=== PATIENT | male | born 1975 | race Hispanic/Latino ===

== ENCOUNTER → 2025-09-30 | Outpatient (CLI) | payer BC ==
[~2025-09-30] MED LIST: GADOTERATE MEGLUMINE 10 MMOL/20 ML VIAL IV ONE
--- NOTE | 2025-09-30 23:16 | HMCIMG ---
EXAM: MR Abdomen with and without Intravenous Contrast. CLINICAL HISTORY: Q44.6 Cystic disease of liver TECHNIQUE: Multisequence, multiplanar magnetic resonance images of the abdomen with and without intravenous contrast. Series acquired: 3 - COR SSFSE ARC - TR: 738.5 - TE: 92.5 - ET: 1.0 - Thk: 5.0 5 - AX SSFSE BH ARC - TR: 676.8 - TE: 87.6 - ET: 1.0 - Thk: 5.0 6 - AX 3D DUALECHO BH - TR: 6.5 - TE: 4.2 - ET: 1.0 - Thk: 4.4 7 - AX T2 FRFSE FATSAT LAZARO ARC - TR: 29157.0 - TE: 106.5 - ET: 18.0 - Thk: 4.0 9 - AX DWI B=500 FB - TR: 3400.0 - TE: 59.0 - ET: 1.0 - Thk: 6.0 11 - G+ COR LAVA ARC - TR: 4.3 - TE: 2.0 - ET: 1.0 - Thk: 4.4 1000 - AX LAVA DYN 5 PHASE - TR: 4.5 - TE: 1.9 - ET: 1.0 - Thk: 4.4 1001 - PH1/AX LAVA DYN 5 PHASE - TR: 4.5 - TE: 1.9 - ET: 1.0 - Thk: 4.4 1002 - PH2/AX LAVA DYN 5 PHASE - TR: 4.5 - TE: 1.9 - ET: 1.0 - Thk: 4.4 1003 - PH3/AX LAVA DYN 5 PHASE - TR: 4.5 - TE: 1.9 - ET: 1.0 - Thk: 4.4 1004 - PH4/AX LAVA DYN 5 PHASE - TR: 4.5 - TE: 1.9 - ET: 1.0 - Thk: 4.4 1005 - PH5/AX LAVA DYN 5 PHASE - TR: 4.5 - TE: 1.9 - ET: 1.0 - Thk: 4.4 1006 - FT: PH1/AX LAVA DYN 5 PHASE - TR: 4.5 - TE: 1.9 - ET: 1.0 - Thk: 20.0 CONTRAST: 20 cc of Clariscan administered intravenously. COMPARISON: None provided. FINDINGS: LOWER THORAX: No pleural effusion. LIVER: Liver is enlarged, measuring approximately 18 cm in craniocaudal dimension, with diffuse loss of signal on opposed-phase imaging compatible with hepatic steatosis. Multiple lobulated cystic lesions are present in both lobes of the liver, demonstrating low signal on T1-weighted images, high signal on T2-weighted images, no restricted diffusion, and no internal septal or mural enhancement on multiphase post-contrast sequences, compatible with simple hepatic cysts. The largest cyst measures approximately 1.6 x 1.3 cm. GALLBLADDER AND BILE DUCTS: No gallstones seen. No biliary ductal dilatation is evident. PANCREAS: Unremarkable. No ductal dilation. SPLEEN: Unremarkable. ADRENALS: Unremarkable. KIDNEYS: Bilateral small cortical cysts measuring up to approximately 1.0 cm, demonstrating low T1 and high T2 signal without internal enhancement, compatible with simple renal cortical cysts. No hydronephrosis or solid renal mass evident. STOMACH AND BOWEL: Limited evaluation of the stomach and bowel demonstrates no acute process. LYMPH NODES: No lymphadenopathy is evident. VASCULATURE: No abdominal aortic aneurysm. IMPRESSION: * Multiple small simple hepatic cysts in both lobes, largest approximately 1.6 cm, on a background of hepatomegaly with hepatic steatosis; differentials for this appearance in the current age group include isolated simple hepatic cysts versus mild cystic liver disease/age-related cystic change, without imaging features to suggest hydatid disease or cystic hepatic neoplasm on this examination. * Bilateral small simple renal cortical cysts measuring up to 1.0 cm, without enhancement; differentials include benign simple renal cysts versus early/limited age-related cortical cystic change, without features of polycystic kidney disease or cystic renal neoplasm. * No acute intra-abdominal abnormality. /Sturgeon
== END | disposition home or self-care (01) ==
LOC: RAH 09:27
PROVIDERS: ATTEND Internal Medicine Gastroenterology
DX: K76.0 Fatty (change of) liver, not elsewhere classified (principal); K76.89 Other specified diseases of liver; R16.0 Hepatomegaly, not elsewhere classified; N28.1 Cyst of kidney, acquired; R10.11 Right upper quadrant pain; R93.2 Abnormal findings on diagnostic imaging of liver and biliary tract; Q44.6 Cystic disease of liver
CPT/HCPCS: 74183; A9575